=== PATIENT | male | born 2000 | race Two or more races ===

== ENCOUNTER 2023-09-16 13:21 | Emergency (ER) | payer OTHER ==
[~2023-09-16] VITALS: Ht 162.6 cm; Wt 73.0 kg
[2023-09-16] MEDS ORDERED: ONDANSETRON 4 MG TAB.RAPDIS SL ONE (14:30)
[2023-09-16] MEDS ORDERED: ACETAMINOPHEN ES 500 MG TABLET PO ONE (14:30)
[2023-09-16] MEDS ORDERED: ONDANSETRON 4 MG TAB.RAPDIS ONE (14:32)
[2023-09-16] MEDS ORDERED: ACETAMINOPHEN ES 500 MG TABLET ONE (14:32)
[2023-09-16] MEDS ORDERED: ONDA4TAB11 PO (15:45)
[2023-09-16 20:06] VITALS: BP 116/81; TEMP 98; O2SAT 100
== END 2023-09-16 15:50 | disposition home or self-care (01) ==
LOC: ER 13:31
DX: R42 Dizziness and giddiness (principal); R11.2 Nausea with vomiting, unspecified
CPT/HCPCS: 99283; Q0162